=== PATIENT | female | born 1975 | race Two or more races ===

== ENCOUNTER 2018-07-01 06:56 | Inpatient (IN) | payer OTHER ==
[~2018-07-01] VITALS: Ht 154.9 cm; Wt 66.2 kg
[~2018-07-01 06:56] MED LIST: TYLENOL-CODEINE1 TAB PO
[2018-07-01] MEDS ORDERED: IRON325 MG PO (08:08)
[2018-07-01] MEDS ORDERED: PRENATAL TABLE1 EAC1 PO (08:08)
== END 2018-07-03 11:39 | disposition home or self-care (01) | DRG 807 ==
LOC: OB/GYN 06:56 → LDR 06:56 → OB/GYN 16:32
PROVIDERS: ADMIT Obstetrics & Gynecology
PROC: 10E0XZZ Delivery of Products of Conception, External Approach (ICD-10-PCS; principal; 2018-07-01)
PROC: 0KQM0ZZ Repair Perineum Muscle, Open Approach (ICD-10-PCS; 2018-07-01)
PROC: 10907ZC Drainage of Amniotic Fluid, Therapeutic from Products of Conception, Via Natural or Artificial Opening (ICD-10-PCS; 2018-07-01)
PROC: 3E033VJ Introduction of Other Hormone into Peripheral Vein, Percutaneous Approach (ICD-10-PCS; 2018-07-01)
PROC: 4A1HXCZ Monitoring of Products of Conception, Cardiac Rate, External Approach (ICD-10-PCS; 2018-07-01)
DX: O70.1 Second degree perineal laceration during delivery (principal); Z37.0 Single live birth; Z3A.39 39 weeks gestation of pregnancy